=== PATIENT | female | born 1950 | race Caucasian/White ===

== ENCOUNTER 2022-11-08 08:00 | Outpatient (NON) | payer MEDICARE, SELFPAY | END 2022-11-08 08:01 | disposition home or self-care (01) | LOC: ANHLAB 11-10 11:22 | PROVIDERS: PCP Physician Assistant Medical; Visit Provider Nurse Practitioner | DX: D18.01 Hemangioma of skin and subcutaneous tissue (principal) | CPT/HCPCS: 88305 ==

== ENCOUNTER 2024-10-25 09:06 | Outpatient (CLI) | payer MEDICARE, SELFPAY ==
--- NOTE | ~2024-10-25 | DEXA_ITS ---
Bone Density Report Name: SAAD FRANKLIN Age: 74 Sex: Female Ethnicity: White Date of : 1950 Indication: osteopenia; hysterectomy; Referring Provider: ANISH LANDRUM Study: Bone densitometry was performed. Exam Date: October 25, 2024 Accession number: [id number] Bone Density: Region BMD T-score Z-score Classification AP Spine(L1-L4) 0.872 -1.6 0.8 Osteopenia Femoral Neck (Left) 0.702 -1.3 0.8 Osteopenia Total Hip (Left) 0.892 -0.4 1.4 Normal Femoral Neck (Right) 0.660 -1.7 0.4 Osteopenia Total Hip (Right) 0.872 -0.6 1.2 Normal Total Hip Mean 0.882 -0.5 1.3 Normal World Health Organization criteria for BMD impression classify patients as: Normal (T-score at or above -1.0), Osteopenia (T-score between -1.0 and -2.5), or Osteoporosis (T-score at or below -2.5). 10-year Fracture Risk(1): Major Osteoporotic Fracture 12% Hip Fracture 2.7% Reported Risk Factors: [place] (), Neck BMD=0.660, BMI=25.4 (1) FRAX(R) Version 3.08. Fracture probability calculated for an untreated patient. Fracture probability may be lower if the patient has received treatment. Previous Exams: Region Exam Age BMD T-score BMD Change BMD Change Date g/cm2 vs Baseline vs Previous AP Spine (L1-L4) 10/25/2024 74 0.872 -1.6 -0.031 (-3.5%) -0.031 (-3.5%) 10/17/2015 65 0.904 -1.3 Total Hip(Left) 10/25/2024 74 0.892 -0.4 -0.074 (-7.6%) -0.074 (-7.6%) 10/17/2015 65 0.966 0.2 Total Hip(Right) 10/25/2024 74 0.872 -0.6 -0.069 (-7.3%) -0.069 (-7.3%) 10/17/2015 65 0.941 0.0 *Denotes significance at 95% confidence level, LSC for AP Spine = 0.022 g/cm2, LSC for Total Hip = 0.027 g/cm2 # Denotes dissimilar scan types or analysis methods Clinical Information Provided by Patient: Has used the following medications: Vitamin D, Calcium Has the following medical conditions: Hysterectomy Patient maximum height was 67.5 Menopause Age: 33 No regular weight bearing exercise Does not regularly consume dairy products Drinks caffeinated beverages Onset of menses at age 12 Number of children 3 Impression: The patient has low bone mass, based on the Right Femoral Neck T-score. The patient has an estimated ten-year risk of hip fracture of 2.7% and an estimated ten-year risk of major fracture of 12%, based on the WHO FRAX algorithm. No significant bone loss was observed. Discussion: BONE DENSITY IS LOW AT ONE OR MORE SKELETAL SITES. This patient's lowest T-score is low at one or more skeletal sites. It meets the World Health Organization's (WHO) criteria for ?low bone mass? (T-score between -1.0 and -2.5). The patient's 10-year risk of fracture as calculated by FRAX is less than the threshold where pharmacological therapy is recommended by the National Osteoporosis Foundation (NOF). However, all treatment decisions require clinical judgment and consideration of individual patient factors, including patient preferences, comorbidities, previous drug use, risk factors not captured in the FRAX model (e.g., frailty, falls, vitamin D deficiency, increased bone turnover, interval significant decline in bone density) and possible under or overestimation of fracture risk by FRAX. The patient should follow a healthful lifestyle (good nutrition with adequate calcium and vitamin D, and appropriate weight-bearing exercise). Follow-Up: Consider repeating this study in 2 to 3 years to reassess this patient's status, or sooner if there is some new clinical indication. Reported by: FELIPA on 10/25/2024 9:54:00 AM. Reviewed, dictated and finalized at location [facility] LAST
--- OUTSIDE RECORDS SUMMARY | 2024-10-25 09:26 | XMS_ITS | Encounter Summary ---
Author Organization [facility] Address [facility] [place] [address] Care Team Providers Care Body Trimmer Name Role Phone Abram Nelson MD Unavailable [phone] Diamond Castillo Primary Care Provider [phone] Encounter Details Date Type Department Care Team (Late Contact Info) Description 06/15/2022 Abstract Paul [address] [address] Jermaine Lloyd MA Social History Tobacco Use Types Packs/Day Years Used Date Smoking Tobacco: Never Smokeless Tobacco: Never Alcohol Use Standard Drinks/Week Comments No 0 (1 standard drink = 0.6 oz pur e alcohol) Comments Unknown Sex and Gender Information Value Date Recorded Sex Assigned at Female 01/03/2020 10:31 AM CDT Legal Sex Female 11:18 PM CDT Gender Identity Female 01/03/2020 10:31 AM CDT Sexual Orientation Straight 01/03/2020 10 :31 AM CDT Occupation Industry Job Start Date Job End Date Teacher Not on file Not on file Not on file COVID-19 Exposure Response Date Recorded In the last 10 days, have yo u been in contact with someone who was confirmed or suspected to have Coronavirus/COVID-19? No / Unsure 06/11/2022 9:17 AM CDT documented as of this encounter Plan of Treatment Upcoming Encounters Date Type Department Care Team (Late Contact Info) Description 04/05/2025 9:00 AM CDT Office Visit [facility] [address] [place] [address] Tom Sanchez, KIM [address] [place] [address] documented as of this encounter Procedures Procedure Name Priority Date/Time Associated Diagnosis Comments CBC (OUTSIDE LAB) Routine 06/10/2022 COMPREHENSIVE METABOLIC PANEL Routine 06/10/2022 LIPID PANEL Routine 06/10/2022 THYROID STIM HORMONE TSH Routine 06/10/2022 documented in this encounter Results * LIPID PANEL (06/10/2022) CHOLESTEROL 151 HDL 45 TRIGLYCERIDES 297 NON HDL CHOLESTEROL 106 LDL (CALCULATED) 70 06/10/2022 us Default History Genericprovider LABORATORY Final Result * COMPREHENSIVE METABOLIC PANEL (06/10/2022) SODIUM S/P/B 140 POTASSIUM S/P/B 4.8 CO2 28 CHLORIDE S/P/B 104 GLUCOSE 145 mg/dL CALCIUM S/P/B 9.2 BUN 13 CREATININE S/P/B 0.72 0.5 - 1.0 EGFR NON-AFR. AMER. 89 <=90 ALKALINE PHOSPHATASE S/P/B 61 ALT 37 AST 18 BILIRUBIN TOTAL S/P/B 0.5 ALBUMIN S/P/B 4.3 3.5 - 5.0 TOTAL PROTEIN S/P/B 6.4 06/10/2022 us Default History Genericprovider LABORATORY Final Result * THYROID STIM HORMONE, TSH (06/10/2022) TSH 5.77 06/10/2022 us Default History Genericprovider LABORATORY Final Result * CBC (OUTSIDE LAB) (06/10/2022) WBC 5.2 HGB 13.3 HCT 41.1 PLT 272 06/10/2022 us Default History Genericprovider LAB-OUTSIDE/ABST RACTED Final Result documented in this encounter Visit Diagnoses Not on filedocumented in this encounter Care Teams Body Trimmer Relationship Specialty Start Date End Date Diamond Castillo PA [address] [place] [address] PCP - General PHYSICIAN ACADEMIC SUPPORT COORDINATOR 06/11/22 Abram Nelson MD [facility]. [facility] [address] [place] [address] [place] Chief Environmental Commitment Officer CARDIOVASCULAR DISEASE 03/14/18 documented as of this encounter
--- OUTSIDE RECORDS SUMMARY | 2024-10-25 09:26 | XMS_ITS | Encounter Summary ---
Author Organization [facility] Address [facility] [place] [address] Care Team Providers Care Electronics Processor Name Role Phone Leonel Brasher MD Primary Care Provider [phone] Abram Nelson MD Unavailable [phone] Diamond Castillo Primary Care Provider [phone] Encounter Details Date Type Department Care Team (Late Contact Info) Description 06/12/2021 Abstract [facility] [address] Jermaine Lloyd MA Social History Tobacco Use [...] file Not on file Not on file documented as of this encounter Plan of Treatment Upcoming Encounters Date Type Department Care Team (Late st Contact Info) Description 04/05/2025 9:00 AM CDT Office Visit [facility] [address] Tom Sanchez, KIM [id number] [place] [address] documented as of this encounter Procedures Procedure Name Priority Date/Time Associated Diagnosis Comments HEMOGLOBIN, GLYCOSYLATED Routine 09/07/2023 COMPREHENSIVE METABOLIC PANEL Routine 09/07/2023 LIPID PANEL Routine 09/07/2023 CBC, MANUAL DIFF Routine 09/07/2023 THYROXINE, FREE (FT4) Routine 09/07/2023 THYROID STIM HORMONE TSH Routine 09/07/2023 CBC (OUTSIDE LAB) Routine 03/31/2021 COMPREHENSIVE METABOLIC PANEL Routine 03/31/2021 LIPID PANEL Routine 03/31/2021 HEMOGLOBIN, GLYCOSYLATED Routine 03/31/2021 documented in this encounter Results * COMPREHENSIVE METABOLIC PANEL (09/07/2023) SODIUM S/P/B 139 GLUCOSE 142 mg/dL AST 18 BUN 10 CREATININE S/P/B 0.75 0.5 - 1.0 CALCIUM S/P/B 8.6 POTASSIUM S/P/B 4.3 CHLORIDE S/P/B 105 ALT 17 us Default History Genericprovider LABORATORY Final Result * LIPID PANEL (09/07/2023) CHOLESTEROL 168 TRIGLYCERIDES 179 HDL 50 NON HDL CHOLESTEROL 118 us Default History Genericprovider LABORATORY Final Result * CBC, MANUAL DIFF (09/07/2023) WBC 5.3 HGB 12.9 HCT 39.2 PLT 280 us Default History Genericprovider LABORATORY Final Result * THYROXINE, FREE (FT4) (09/07/2023) Pathologist [facility] FREE T4 1.0 Result [facility] Default History Genericprovider LABORATORY Final Result * HEMOGLOBIN, GLYCOSYLATED (09/07/2023) Pathologist [facility] HGB A1C 6.9 % Result [facility] Default History Genericprovider LABORATORY Final Result * THYROID STIM HORMONE TSH (09/07/2023) Pathologist [facility] TSH 5.05 Result [facility] Default History Genericprovider LABORATORY Final Result * CBC (OUTSIDE LAB) (03/31/2021) [facility] WBC 7.9 HGB 13.7 HCT 41.7 PLT 330 03/31/2021 us Doc [facility] Abstract LAB-OUTSIDE/ABSTRACTED Final Result * HEMOGLOBIN, GLYCOSYLATED (03/31/2021) Pathologist [facility] HGB A1C 6.4 % 03/31/2021 us Doc [facility] Abstract LABORATORY Final Result * COMPREHENSIVE METABOLIC PANEL (03/31/2021) Pathologist [facility] SODIUM S/P/B 139 POTASSIUM S/P/B 4.1 CO2 24 CHLORIDE S/P/B 103 GLUCOSE 147 mg/dL CALCIUM S/P/B 9.0 BUN 14 CREATININE S/P/B 0.81 0.5 - 1.0 EGFR AFR. AMER. 85 <=90 EGFR NON-AFR. AMER. 73 <=90 ALKALINE PHOSPHATASE S/P/B 55 ALT 15 AST 17 BILIRUBIN TOTAL S/P/B 0.4 ALBUMIN S/P/B 4.4 3.5 - 5.0 TOTAL PROTEIN S/P/B 6.8 GLOBULIN 2.4 03/31/2021 us Doc [facility] Abstract LABORATORY Final Result * LIPID PANEL (03/31/2021) CHOLESTEROL 179 HDL 41 TRIGLYCERIDES 463 NON HDL CHOLESTEROL 138 03/31/2021 us Doc [facility] Abstract LABORATORY Final Result documented in this encounter Visit Diagnoses Not on filedocumented in this encounter Care Teams Electronics Processor Relationship Specialty Start Date End Date Leonel Brasher MD PCP - General INTERNAL MEDICINE 03/08/17 06/10/22 Diamond Castillo PA [address] [place] [address] PCP - General PHYSICIAN TRACK LABORER 06/11/22 Abram Nelson MD [facility] [address] [place] [address] [place]ow Review Specialist CARDIOVASCULAR DISEASE 03/14/18 documented as of this encounter
--- OUTSIDE RECORDS SUMMARY | 2024-10-25 09:26 | XMS_ITS | Encounter Summary ---
Author Organization [facility] Address [address] [place] [address] Care Team Providers Care Shift Stacker Name Role Phone Leonel Brasher MD Primary Care Provider [phone] Encounter Details Date Type Department Care Team (Latest Contact Info) Description 10/21/2024 Results Follow-Up [facility] E[facility], NOSE AND THROAT [facility] [address] [facility] [address] [place] [address] Leonardo Espinal MD [address] [facility]. [facility] [address] [place] [address] THYROID AUTOANTIBODIES PROFILE Social History Tobacco Use Types Packs/Day Years Used Date Smoking Tobacco: Never Smokeless Tobacco: Never Alcohol Use Standard Drinks/Week Comments Never 0 (1 standard drink = 0.6 oz pur e alcohol) Comments Unknown Sex and Gender Information Value Date Recorded Sex Assigned at Not on file Legal Sex Female 5:39 AM UNIT SUPPORT REPRESENTATIVE Gender Identity Not on file Sexual Orientation Not on file Occupation Industry Job Start Date Job End Date Not on file Not on file Not on file Not on file documented as of this encounter Plan of Treatment Upcoming Encounters Date Type Department Care Team (Late st Contact Info) Description 09/19/2025 12:45 PM UNIT SUPPORT REPRESENTATIVE Office Visit [facility] [address] [facility] [address] [place] [address] Leonardo Espinal MD [address] [facility] [address] [facility] [address] [place] [address] documented as of this encounter Visit Diagnoses Not on filedocumented in this encounter Care Teams Shift Stacker Relationship Specialty Start Date End Date Leonel Brasher MD [address] [place] [phone] PCP - General 11/08/08 documented as of this encounter
--- OUTSIDE RECORDS SUMMARY | 2024-10-25 09:26 | XMS_ITS | Encounter Summary ---
Author Organization [facility] Address [facility] [place] [address] Care Team Providers Care Orthopedic Designer Name Role Phone Leonel Brasher MD Primary Care Provider Abram Nelson MD Unavailable [phone] Diamond Castillo Primary Care Provider [phone] Encounter Details Date Type Department Care Team (Late Contact Info) Description 04/27/2018 Abstract [facility] at [address] [address] Jermaine Lloyd MA Social History [...] AM CDT Office Visit [facility] [address] Tom Sanchez, LITHOGRAPHIC PROOFER APPRENTICE Three [address] [id number] documented as of this encounter Procedures Procedure Name Priority Date/Time Associated Diagnosis Comments CBC (OUTSIDE LAB) Routine 02/01/2020 COMPREHENSIVE METABOLIC PANEL Routine 02/01/2020 LIPID PANEL Routine 02/01/2020 HEMOGLOBIN, GLYCOSYLATED Routine 02/01/2020 THYROID STIM HORMONE TSH Routine 02/01/2020 VITAMIN D, 25 OH Routine 02/01/2020 MAGNESIUM Routine 02/01/2020 CBC (OUTSIDE LAB) Routine 09/27/2017 COMPREHENSIVE METABOLIC PANEL Routine 09/27/2017 LIPID PANEL Routine 09/27/2017 HEMOGLOBIN, GLYCOSYLATED Routine 09/27/2017 THYROID STIM HORMONE TSH Routine 09/27/2017 VITAMIN D, 25 OH Routine 09/27/2017 MAGNESIUM Routine 09/27/2017 documented in this encounter Results * VITAMIN D, 25 OH (02/01/2020) VITAMIN D 25 HYDROXY S/P/B 30 02/01/2020 us Doc [facility] Abstract LABORATORY Final Result * CBC (OUTSIDE LAB) (02/01/2020) WBC 6.1 HGB 13.0 HCT 40.7 PLT 315 02/01/2020 us Doc [facility] Abstract LAB-OUTSIDE/ABSTRACTED Final Result * THYROID STIM HORMONE, TSH (02/01/2020) Pathologist [facility] TSH 2.21 0.40 - 4.50 02/01/2020 us Doc [facility] Abstract LABORATORY Final Result * MAGNESIUM (02/01/2020) Pathologist [facility] MAGNESIUM 2.0 1.5 - 2.5 02/01/2020 us Doc [facility] Abstract LABORATORY Final Result * HEMOGLOBIN, GLYCOSYLATED (02/01/2020) Pathologist [facility] HGB A1C 7.7 % 02/01/2020 us Doc [facility] Abstract LABORATORY Final Result * (ABNORMAL) COMPREHENSIVE METABOLIC PANEL (02/01/2020) Pathologist [facility] SODIUM S/P/B 140 POTASSIUM S/P/B 4.4 CO2 28 CHLORIDE S/P/B 105 GLUCOSE 168 mg/dL CALCIUM S/P/B 9.3 BUN 11 CREATININE S/P/B 0.77 0.5 - 1.0 EGFR AFR. AMER. 91(A) <=90 EGFR NON-AFR. AMER. 78 <=90 ALKALINE PHOSPHATASE S/P/B 51 ALT 19 AST 17 BILIRUBIN TOTAL S/P/B 0.5 ALBUMIN S/P/B 4.4 3.5 - 5.0 TOTAL PROTEIN S/P/B 6.2 GLOBULIN 1.8 02/01/2020 us Doc [facility] Abstract LABORATORY Final Result * LIPID PANEL (02/01/2020) Pathologist [facility] CHOLESTEROL 156 HDL 50 TRIGLYCERIDES 167 NON HDL CHOLESTEROL 106 LDL (CALCULATED) 79 02/01/2020 us Doc [facility] Abstract LABORATORY Final Result * VITAMIN D, 25 OH (09/27/2017) VITAMIN D 25 HYDROXY S/P/B 32 09/27/2017 Doc [facility] Abstract LABORATORY Final Result * CBC (OUTSIDE LAB) (09/27/2017) Pathologist [facility] WBC 5.3 HGB 12.9 HCT 39.4 PLT 316 09/27/2017 Doc [facility] Abstract LAB-OUTSIDE/ABSTRACTED Final Result * THYROID STIM HORMONE, TSH (09/27/2017) Pathologist [facility] TSH 2.76 09/27/2017 [facility] LABORATORY Final Result * MAGNESIUM (09/27/2017) Pathologist [facility] MAGNESIUM 1.9 09/27/2017 [facility] LABORATORY Final Result * HEMOGLOBIN, GLYCOSYLATED (09/27/2017) Pathologist [facility] HGB A1C 8.7 09/27/2017 [facility] LABORATORY Edited Resul t - Final * (ABNORMAL) COMPREHENSIVE METABOLIC PANEL (09/27/2017) Pathologist [facility] SODIUM S/P/B 138 POTASSIUM S/P/B 4.3 CO2 29 CHLORIDE S/P/B 102 GLUCOSE 212 mg/dL CALCIUM S/P/B 9.3 BUN 14 CREATININE S/P/B 0.78 0.5 - 1.0 EGFR AFR. AMER. 91(A) <=90 EGFR NON-AFR. AMER. 79 <=90 ALKALINE PHOSPHATASE S/P/B 51 ALT 19 AST 17 BILIRUBIN TOTAL S/P/B 0.7 ALBUMIN S/P/B 4.1 3.5 - 5.0 TOTAL PROTEIN S/P/B 6.5 09/27/2017 us Doc [facility] Abstract LABORATORY Final Result * LIPID PANEL (09/27/2017) CHOLESTEROL 132 HDL 46 TRIGLYCERIDES 162 NON HDL CHOLESTEROL 86 LDL (CALCULATED) 62 09/27/2017 us Doc [facility] Abstract LABORATORY Final Result documented in this encounter Visit Diagnoses Not on filedocumented in this encounter Care Teams Orthopedic Designer Relationship Specialty Start Date End Date Leonel Brasher MD PCP - General INTERNAL MEDICINE 03/08/17 06/10/22 Diamond Castillo PA [address] [place] [address] PCP - General PHYSICIAN GALLERY INTERN 06/11/22 Abram Nelson MD [facility] [address] [place] [address] [place] Stock Checker CARDIOVASCULAR DISEASE 03/14/18 documented as of this encounter
--- OUTSIDE RECORDS SUMMARY | 2024-10-25 09:26 | XMS_ITS | Referral Summary ---
Author Organization [facility] Address [address] [place] [address] Care Team Providers Care Computer Graphic Artist Name Role Phone Referral, Self Unavailable Unavailable Diamond Castillo Primary Care Provider [phone] Allergies Active Allergy Reactions Criticality Noted Date Comments Penicillins Hives,Rash,Unknown Medium 11/24/2009 Rash Prednisone Mental status changes,Unknown Medium 11/24/2009 Other reaction(s): Confusion, Memory Loss 40 yrs ago Confusion Medications [place] Thyroid 15 mg tablet 09/18/2020 Active simvastatin (ZOCOR) 20 mg tablet 09/18/2020 Active Ozempic 1 mg/dose (2 mg/1.5 mL) pen injector 09/18/2020 Active omeprazole (PriLOSEC) 20 mg capsule 09/18/2020 Active ezetimibe (ZETIA) 10 mg tablet 09/18/2020 Active metFORMIN XR (GLUCOPHAGE XR) 500 mg 24 hr tablet 09/18/[address] (VOLTAREN) 75 mg EC tablet 09/18/2020 Active irbesartan (AVAPRO) 150 mg tablet 09/25/2020 Active Active Problems Problem Noted Date Diagnosed Date Diabetes 11/10/2021 DJD (degenerative joint disease) 11/10/2021 Other fatigue 04/21/2018 Heart palpitations 02/03/2016 Hyperlipidemia 02/03/2016 Hypertension 02/03/2016 Immunizations Immunization Administration Dates Next Due Pneumococcal Conjugate PCV 13 08/05/2016 Pneumococcal Polysaccharide PPV23 09/21/2017 Social History Tobacco Use Types Packs/Day Years Used Date Smoking Tobacco: Never Smokeless Tobacco: Never Tobacco Cessation:Counseling Given: No Personal Safety Answer Date Recorded Getting School Help Needed Not on file 10/21 Comments Unknown Sex and Gender Information Value Date Recorded Sex Assigned at Not on file Legal Sex Female 7:45 PM MANAGER OF DEVELOPMENT Gender Identity Not on file Sexual Orientation Not on file Last Filed Vital Signs Vital Sign Reading Time Taken Comments Blood Pressure 112/70 08/21/2013 9:15 PM MANAGER OF DEVELOPMENT Pulse 88 08/21/2013 9:15 PM MANAGER OF DEVELOPMENT Temperature 36.5 C (97.7 F) 08/21/2013 9:15 PM MANAGER OF DEVELOPMENT Respiratory Rate - - Oxygen Saturation 93% 08/21/2013 9:15 PM MANAGER OF DEVELOPMENT Inhaled Oxygen Concentration - - Weight 71.7 kg (158 lb) 10/22/2020 9:34 AM CDT Height 170.2 cm (5' 7 ) 10/22/2020 9:34 AM CDT Body Mass Index 24.75 10/22/2020 9:34 AM CDT Plan of Treatment Not on file Procedures Procedure Name Priority Date/Time Associated Diagnosis Comments HEMOGLOBIN A1C Routine 08/22/2013 4:58 AM MANAGER OF DEVELOPMENT from Last 3 Months or Most Recently Relevant to Health Maintenance Results * (ABNORMAL) Hemoglobin A1c (08/22/2013 4:58 AM MANAGER OF DEVELOPMENT) Hemoglobin A1c % 8.5(H) 4.8 - 5.9 % 08/22/2013 7:36 AM MANAGER OF DEVELOPMENT [facility] HISTORICAL RESULTS Comment: As of 2010 Method: SAMSON Adilene 6000 using turbidometric inhibition immunoassay procedure. Results obtained are comparable to results obtained using previous methodology (HPLC). [place] Diabetes Association recommends that the goal of therapy should be an A1C hemoglobin of <7%. Reevaluate the treatment regimen in patients with an A1C >8%. 08/22/2013 4:58 AM MANAGER OF DEVELOPMENT 08/22/2013 5:45 AM MANAGER OF DEVELOPMENT us Patrick Campbell MD LAB BLOOD ORDERABLES F inal Result [facility] HISTORICAL RESULTS from Last 3 Months or Most Recently Relevant to Health Maintenance Insurance [facility] MEDICARE MEDICARE SOLUTIONS [facility] MEDIC[facility] Address: [address] [address] [place] [address] Care Teams Computer Graphic Artist Relationship Specialty Start Date End Date Diamond Castillo PA [address] [place] [address] PCP - General Physician Ethanol Operator 09/10/22 Referral, Self 09/22/21
--- OUTSIDE RECORDS SUMMARY | 2024-10-25 09:26 | XMS_ITS | Clinical Summary ---
Author Organization [facility] Address [address] [place] [address] Care Team Providers Care Hospital Ward Clerk Name Role Phone Referral, Self Unavailable Unavailable Diamond Castillo Primary Care Provider [phone] Allergies Active Allergy Reactions Criticality Noted Date Comments Penicillins Hives,Rash,Unknown Medium 11/24/2009 Rash Prednisone Mental status changes,Unknown Medium 11/24/2009 Other reaction(s): Confusion, Memory Loss 40 yrs ago Confusion Medications [place] Thyroid 15 mg tablet 09/18/2020 Active simvastatin [...] PCV 13 08/05/2016 Pneumococcal Polysaccharide PPV23 09/21/2017 Surgical History Surgery Date Site/Laterality Comments HYSTERECTOMY KNEE SURGERY Medical History Medical History Date Comments Anemia Arthritis Asthma Diabetes mellitus (HCC) Gastric reflux Heart valve disease Hypercholesteremia Migraines Pneumonia Allergic rhinitis Thyroid disease Urinary tract infection Family History Medical History Relation Name Comments Arthritis Father Heart disease Father Hypertension Father Lung disease Father Arthritis Mother Diabetes Mother Heart disease Mother Hypertension Mother Relation Name Status Comments Father Mother Social History Tobacco Use Types Packs/Day Years Used Date Smoking Tobacco: Never Smokeless Tobacco: Never Tobacco Cessation:Counseling Given: No Personal Safety Answer Date Recorded Getting School Help Needed Not on file 10/21 Comments Unknown Sex and Gender Information Value Date Recorded Sex Assigned at Not on file Legal Sex Female 7:45 PM BONE PROCESS OPERATOR Gender Identity Not on file Sexual Orientation Not on file Obstetrics History Last Filed Vital Signs Vital Sign Reading Time Taken Comments Blood Pressure 112/70 08/21/2013 9:15 PM BONE PROCESS OPERATOR Pulse 88 08/21/2013 9:15 PM BONE PROCESS OPERATOR Temperature 36.5 C (97.7 F) 08/21/2013 9:15 PM BONE PROCESS OPERATOR Respiratory Rate - - Oxygen Saturation 93% 08/21/2013 9:15 PM BONE PROCESS OPERATOR Inhaled Oxygen Concentration - - Weight 71.7 kg (158 lb) 10/22/2020 9:34 AM CDT Height 170.2 cm (5' 7 ) 10/22/2020 9:34 AM CDT Body Mass Index 24.75 10/22/2020 9:34 AM CDT Plan of Treatment Health Maintenance Due Date Last Done Comments Albumin Creatinine Ratio, Urine 1949 Breast Cancer Screening-Mammogram 1949 Colon Cancer Screening-Colonoscopy 1949 Depression Screening 1949 Fall Risk Assessment 1950 Hepatitis C Screening 1949 Osteoporosis Screening-Bone Density Scan 1949 eGFR 1949 Dilated Eye Exam 1949 Foot Exam 1949 Lipid Panel 1949 DTaP/Tdap/Td Vaccine (1 - Tdap) 1960 Hepatitis B Screening 10/15/1967 Zoster Vaccine (1 of 2) 10/15/1999 Hemoglobin A1C 02/19/2014 08/22/2013 Well Visit 65+ 2014 Influenza Vaccine (#1) 2024 Pneumococcal vaccine 65+ Completed 09/21/2017, 07/09 Procedures Procedure Name Priority Date/Time Associated Diagnosis Comments HEMOGLOBIN A1C Routine 08/22/2013 4:58 AM BONE PROCESS OPERATOR from Last 3 Months or Most Recently Relevant to Health Maintenance Results * (ABNORMAL) Hemoglobin A1c (08/22/2013 4:58 AM BONE PROCESS OPERATOR) Hemoglobin A1c % 8.5(H) 4.8 - 5.9 % 08/22/2013 7:36 AM BONE PROCESS OPERATOR [facility] HISTORICAL RESULTS Comment: As of 2010 Method: SAMSON Adilene 6000 using turbidometric inhibition immunoassay procedure. Results obtained are comparable to results obtained using previous methodology (HPLC). Citizen Of [place] Diabetes Association recommends that the goal of therapy should be an A1C hemoglobin of <7%. Reevaluate the treatment regimen in patients with an A1C >8%. 08/22/2013 4:58 AM BONE PROCESS OPERATOR 08/22/2013 5:45 AM BONE PROCESS OPERATOR Patrick Campbell MD LAB BLOOD ORDERABLES F inal Result [facility] HISTORICAL RESULTS from Last 3 Months or Most Recently Relevant to Health Maintenance Insurance [employer] [facility] MEDIC[facility] Address: [facility] [id number] [place] [address] MEDICARE SOLUTIONS Care Teams Hospital Ward Clerk Relationship Specialty Start Date End Date Diamond Castillo PA [address] [place] [address] PCP - General Physician Assurance Auditor 09/10/22 Referral, Self 09/22/21
--- OUTSIDE RECORDS SUMMARY | 2024-10-25 09:26 | XMS_ITS | Clinical Summary ---
Author Organization [email or web address] Address [address] [place] [address] Care Team Providers Care Commercial Solar Sales Consultant Name Role Phone Chanell Snell Primary Care Provider Source Comments [email or web address],non-owned Affiliates and Associated Physician Practices is amultiple site organization consisting of ambulatory clinics and hospital sitesin [place], [place], [place] and [place]. This disclosure is being madepursuant to the Care Everywhere program and may not contain all information available regarding this patient. Last updated 18.[email or web address] Social History Tobacco Use Types Packs/Day Years Used Date Smoking Tobacco: Never Assessed Sex and Gender Information Value Date Recorded Sex Assigned at Not on file Gender Identity Not on file Sexual Orientation Not on file Plan of Treatment Health Maintenance Due Date Last Done Comments BONE DENSITY TESTING 1950 COLOGUARD (AGES 45-75) - COL ON CA SCREENING 1950 COLON MONITORING 1950 COLONOSCOPY - COLON CA SCREENING 1949 CT COLONOGRAPHY - COLON CA SCREENING 1950 Colorectal Cancer Screening 1950 FIT - COLON CA SCREENING 1949 FLEX SIG - COLON CA SCREENING 1950 LIPID TESTING 1950 MAMMOGRAM 1950 HEPATITIS C SCREENING 10/10/1967 DTAP/TDAP/TD VACCINES (1 - Tdap) 1968 PNEUMOCOCCAL VACCINE 50+ (1 of 1 - PCV) 10/15/1999 ZOSTER VACCINE (1 of 2) 10/15/1999 COVID-19 VACCINE ( - 2023-2 5 season) 2024 INFLUENZA VACCINE (#1) 2024 DEPRESSION SCREENING 08/08/2024 Respiratory Syncytial Virus (RSV) Vaccine Pt: or over 60 yrs (1 - 1-dose 75+ series) 2024 HEPATITIS B VACCINE Aged Out No longe r eligible based on patient's age to complete this topic HIB VACCINE Aged Out No longer eligi ble based on patient's age to complete this topic HPV VACCINE Aged Out No longer eligi ble based on patient's age to complete this topic MENINGOCOCCAL (Group B) VACC INE SHARED DECISION-MAKING Aged Out No longer eligibl e based on patient's age to complete this topic MENINGOCOCCAL GROUPS A/C/Y/W VACCINE Aged Out No longer eligible b ased on patient's age to complete this topic Care Teams Commercial Solar Sales Consultant Relationship Specialty Start Date End Date Chanell Snell PA [address] [place] [address] PCP - General 11/30/22
--- OUTSIDE RECORDS SUMMARY | 2024-10-25 09:26 | XMS_ITS | Clinical Summary ---
Author Organization [facility] Address [facility] [place] [address] Care Team Providers Care Biology Teacher Name Role Phone Abram Nelson MD Unavailable [phone] Thomas Castillo Primary Care Provider Allergies Active Allergy Reactions Criticality Noted Date Comments Penicillins Rash Low 11/24/2009 Prednisone Memory Loss Medium 11/24/2009 40 yrs ago Steroids Memory Loss Medium 02/03/2016 40 yrs ago Medications DAILY MULTIPLE VITAMINS Tab Take 1 tablet by mouth daily. 05/15/2013 Active diclofenac sodium 75 MG tablet Take 1 tablet (75 mg total) by mouth 2 (two) times daily as needed. 05/14/2013 Active omeprazole 20 MG capsule Take 1 capsule (20 mg total) by mouth daily. 05/14/2013 Active ARMOUR THYROID 15 MG Tab Take 1 tablet (15 mg total) by mouth daily. 01/27/2016 Active ARMOUR THYROID 60 MG tablet Take 1 tablet (60 mg total) by mouth daily. 01/27/2016 Active B Complex-Folic Acid (SUPER B COMPLEX MAXI) Tab Take 1 tablet by mouth daily. 02/04/2016 Active Multiple Vitamins-Minera ls (VISION FORMULA/LUTEIN) Tab Take 1 tablet by mouth daily. 02/04/2016 Active Vitamin E 400 UNITS Tab Take 1 tablet by mouth daily. 02/04/2016 Active calcium carb-cholecalci ferol (CALCIUM 600+D) 600-800 MG-UNIT per tablet Take 1 tablet by mouth daily. 02/04/2016 Active Cyanocobalamin (VITAMIN B-12) [address] 1 tablet under the tongue daily. NO DOSE GIVEN 04-21-18 04/21/2018 Active montelukast 10 MG tablet Take 1 tablet (10 mg total) by mouth every morning. 04/21/2018 Active Cholecalciferol (VITAMIN D) 1000 UNIT tablet Take 1 tablet (1,000 Units total) by mouth daily. NO DOSE GIVEN 04-21-18. 04/21/2018 Active irbesartan 75 MG tablet Take 0.5 tablets (37.5 mg total) by mouth daily. 04/27/2019 Active FARXIGA 5 MG Tab 02/13/2021 Active OZEMPIC, 1 MG/DOSE, 4 MG/3ML Solution Pen-injector 02/19/2021 Active vitamin A 3 MG (41694 UT) capsule Take by mouth daily. Active metFORMIN ER (GLUCOPHAGE-XR) 500 MG 24 hr tablet Take 1 tablet (500 mg total) by mouth daily with breakfast. 03/24/2024 Active rosuvastatin (CRESTOR) 5 MG tablet Take 1 tablet (5 mg total) by mouth nightly at bedtime. at bedtime 90 tablet 1 07/20/2024 Active Active Problems Problem Noted Date Diagnosed Date Dizziness 01/01/2022 Other fatigue 04/21/2018 Heart palpitations 02/03/2016 Hypertension 02/03/2016 Hyperlipidemia 02/03/2016 Encounters Date Type Department Care Team Description 09/17/2024 10:38 AM TEA TASTER - 09/17/2024 11:59 PM [facility] Hospital [place] [address] [place] [address] Kaia Landrum FNP Discharge Disposition: Home or Self Care (Routine Discharge) 09/17/2024 Travel 08/15/2024 8:48 AM TEA TASTER - 08/15/2024 11:59 PM [facility] Hospital Encounter [facility] Ultrasound [address] [place] [address] Thomas Castillo PA Discharge Disposition: Home or Self Care (Routine Discharge) 08/15/2024 Travel from Last 3 Months Family History Medical History Relation Comments Breast Cancer Daughter Diabetes Mother Family history positive for heart disease Other Breast Cancer Paternal Aunt 60's Breast Cancer Paternal Grandmother Breast Cancer Sister 1 60's Diabetes Sister 1 Diabetes Sister 2 Relation Status Comments Daughter Father Maternal Aunt Mother Other Paternal Aunt Alive Paternal Grandmother Sister 1 Alive Sister 2 Alive Social History Tobacco Use Types Packs/Day Years Used Date Smoking Tobacco: Never Smokeless Tobacco: Never Tobacco Cessation:Counseling Given: Not Answered Alcohol Use Standard Drinks/Week Comments No 0 [...] file Not on file Not on file Last Filed Vital Signs Vital Sign Reading Time Taken Comments Blood Pressure 138/60 03/30/2024 8:22 AM CDT Pulse 72 03/30/2024 8:22 AM CDT Temperature - - Respiratory Rate - - Oxygen Saturation 96% 08/26/2023 9:41 AM TEA TASTER Inhaled Oxygen Concentration - - Weight 73.5 kg (162 lb) 03/30/2024 8:22 AM CDT Height 170.2 cm (5' 7 ) 03/30/2024 8:22 AM CDT Body Mass Index 25.37 03/30/2024 8:22 AM CDT Plan of Treatment Upcoming Encounters Date Type Department Care Team (Late st Contact Info) Description 04/05/2025 9:00 AM CDT Office Visit [facility] [address] [place] [address] Tom Sanchez, KIM [address] [address] Health Maintenance Due Date Last Done Comments Colorectal Cancer Screening Colonoscopy (10 Years) 1950 Hepatitis C 10/15/1967 DTaP, Tdap and Td Vaccines (1 - Tdap) 1968 Zoster Vaccines (1 of 2) 10/15/1999 Annual Medicare Wellness Visit 2014 Dexa Scan (General) 2014 COVID-19 Vaccine (2023- season) 2024 Influenza Adult (#1) 2024 RSV Immunization or 60+ Years (1 - 1-dose 75+ series) 2024 Mammogram Screening 03/13/2026 03/13/2024, 11/17/2022, 10/28/2021, Additional history exists Pneumococcal Vaccine: 65+ Years Completed 09/21/2017, 08/05/2016 Meningococcal B Vaccine Aged Out No l onger eligible based on patient's age to complete this topic Meningococcal Vaccine Aged Out No morro michele eligible based on patient's age to complete this topic RSV Immunizations Under 20 Months Aged Out No longer eligible based on patient's age to complete this topic Procedures Procedure Name Priority Date/Time Associated Diagnosis Comments CT ABD+PEL WO CON STAT 09/17/2024 11: 08 AM TEA TASTER Unspecified jaundice US THYROID Routine 08/15/2024 9:17 AM TEA TASTER Nontoxic single thyroid nodule MG SCREENING W BARBARA ALEX DIGI Routine 03/13/2024 3:25 PM CDT Screening mammogram, encounter for from Last 3 Months or Most Recently Relevant to Health Maintenance Results * CT ABD+PEL WO CON (09/17/2024 11:08 AM TEA TASTER) Anatomical Region Laterality Modality Abdomen Computed Tomogra phy 09/17/2024 11:2 8 AM TEA TASTER Impressions 09/17/2024 12:01 PM TEA TASTER IMPRESSION: 1. Mild fatty liver without focal mass on this noncontrast study. No biliary ductal dilatation. No gross pancreatic mass 2. Gallbladder calculi without inflammation. No renal calculi or hydronephrosis.. 3. Stable enlarged periaortic lymphadenopathy. No new lymphadenopathy. Normal size spleen without mass. Ordered By: KAIA LANDRUM Interpreted By: Matt Coleman, 09/17/2024 11:28 AM Narrative 09/17/2024 12:01 PM TEA TASTER [facility] [address] [place] [address] EXAMINATION: CT Abdomen and Pelvis without contrast EXAM DATE/TIME: 09/17/2024 10:40 AM REASON FOR EXAM: unspecified jaundice Normal liver enzymes. 03/24/2023 COMPARISON: 03/24/2023 TECHNIQUE: Axial imaging of the abdomen and pelvis was obtained without intravenous contrast. A dose lowering technique was used for this procedure, which may include, but is not limited to, dose reduction technique, automated exposure control, iterative reconstruction, ALARA (As Low As Reasonably Achievable), or Image Gently techniques. FINDINGS: Abdomen: Adrenal glands are unremarkable. Kidneys demonstrate no suspicious lesion or hydronephrosis. Stomach and duodenum are unremarkable. Spleen is unremarkable. Few gallbladder calculi without dilatation or inflammation. No calculi within the cystic duct or common bile duct. No intrahepatic biliary ductal dilatation. Pancreas grossly unremarkable. Hepatic parenchyma are within normal limits with no evidence of intrahepatic biliary dilatation or mass within the limitations of a noncontrast study. No mesenteric lymphadenopathy or evidence of small bowel obstruction. No free fluid or free air. Relatively stable enlarged pathologic sized lymph nodes at the level of the superior right periaortic region. Largest short Alna dimension of 2.4 cm on image 72 of series 2.. No new lymphadenopathy. No evidence of an abdominal aortic aneurysm. Scattered fecal material and gas throughout the colon without evidence of mass or dilatation. Multiple diverticuli within the descending and sigmoid colon without diverticulitis. Stable possible appendectomy. No adjacent inflammation. Pelvis: Urinary bladder and rectum are unremarkable. Hysterectomy. No adnexal lesions. On bone windows, no evidence of suspicious skeletal lesion or acute compression fracture deformity. Stable bone islands in the pelvis. Stable total loss of disc space height at L5-S1 with mild spinal stenosis. Moderate spinal stenosis at L4- 5. Limited evaluation of the lower thorax demonstrates no acute abnormality. Procedure Note Keith Coleman MD - 09/17/2024 [facility] [address] [place] [id number] EXAMINATION: CT Abdomen and Pelvis without contrast EXAM DATE/TIME: 09/17/2024 10:40 AM REASON FOR EXAM: unspecified jaundice Normal liver enzymes. 03/24/2023 COMPARISON: 03/24/2023 TECHNIQUE: Axial imaging of the abdomen and pelvis was obtained withoutintravenous contrast. A dose lowering technique was used for this procedure, which may include,but is not limited to, dose reduction technique, automated exposurecontrol, iterative reconstruction, ALARA (As Low As ReasonablyAchievable), or Image Gently techniques. FINDINGS: Abdomen: Adrenal glands are unremarkable. Kidneys demonstrate nosuspicious lesion or hydronephrosis. Stomach and duodenum are unremarkable. Spleen is unremarkable. Few gallbladder calculi without dilatation or inflammation. No calculiwithin the cystic duct or common bile duct. No intrahepatic biliary ductaldilatation. Pancreas grossly unremarkable. Hepatic parenchyma are within normal limits with no evidence ofintrahepatic biliary dilatation or mass within the limitations of anoncontrast study. No mesenteric lymphadenopathy or evidence of small bowel obstruction. Nofree fluid or free air. Relatively stable enlarged pathologic sized lymph nodes at the level ofthe superior right periaortic region. Largest short Alna dimension of 2.4cm on image 72 of series 2.. No new lymphadenopathy. No evidence of an abdominal aortic aneurysm. Scattered fecal material and gas throughout the colon without evidence ofmass or dilatation. Multiple diverticuli within the descending and sigmoidcolon without diverticulitis. Stable possible appendectomy. No adjacent inflammation. Pelvis: Urinary bladder and rectum are unremarkable. Hysterectomy. Noadnexal lesions. On bone windows, no evidence of suspicious skeletal lesion or acutecompression fracture deformity. Stable bone islands in the pelvis. Stabletotal loss of disc space height at L5-S1 with mild spinal stenosis.Moderate spinal stenosis at L4-5. Limited evaluation of the lower thorax demonstrates no acuteabnormality. IMPRESSION: 1. Mild fatty liver without focal mass on this noncontrast study. Nobiliary ductal dilatation. No gross pancreatic mass 2. Gallbladder calculi without inflammation. No renal calculi orhydronephrosis.. 3. Stable enlarged periaortic lymphadenopathy. No new lymphadenopathy.Normal size spleen without mass. Ordered By: KAIA LANDRUM Interpreted By: Matt Coleman, 09/17/2024 11:28 AM us Kaia Landrum OXYACETYLENE BURNER CT Final Resul t * US THYROID (08/15/2024 9:17 AM TEA TASTER) Anatomical Region Laterality Modality Neck Ultrasound 08/16/2024 10:4 4 AM TEA TASTER Impressions 08/16/2024 10:50 AM TEA TASTER IMPRESSION: 1.8 cm left thyroid nodule is present. This is stable as compared back to June 20, 2023. Per current TI-RADS criteria FNA recommended. Please see discussion above. Follow-up of the thyroid nodule is recommended. Linear. Ordered By: THOMAS CASTILLO Interpreted By: Martin Courtney MD, 08/16/2024 10:44 AM Narrative 08/16/2024 10:50 AM TEA TASTER [facility] [address] [facility] [place] [id number] Procedure(s): US THYROID Date of service: 08/15/2024 8:49 AM Provided clinical information: 73 years, Female, NONTOXIC SINGLE THYROID NODULE Procedure and materials: Grayscale and color Doppler images of the right left lobe of thyroid gland are obtained. Comparison studies: July 15, 2023. Findings: Right lobe of thyroid gland measures 2.7 x 1.1 x 1.1 cm. Left lobe of thyroid gland measures 3 x 1.3 x 1.3 cm. Thyroid isthmus measures 2.2 mm. A heterogeneous echotexture. In the right lobe of thyroid gland there is a small nodule is present. This nodule is hypoechoic. Previously measured 1 x 0.6 x 0.7 cm. No evidence of echogenic foci. Small cystic area is suggested. TI-RADS Category 4. Follow-up in one year. In the left lobe of thyroid gland there is a hypoechoic nodule measuring approximately 1.8 x 1 x 0.9 cm. This previously measured approximately 1.8 x 1.1 x 1.2 cm. No echogenic foci are present. This is previously measured on prior ultrasound of June 20, 2023. This is relatively stable. TI-RADS Category 4. Due to size greater than 1.5 cm FNA could be considered. However, in light of the one year stability follow-up in one year could be performed. Per current TI-RADS recommendations FNA is recommended. Procedure Note Martin Courtney MD - 08/16/2024 [facility] [address] [place] [address] Procedure(s): US THYROID Date of service: 08/15/2024 8:49 AM Provided clinical information: 73 years, Female, NONTOXIC SINGLE THYROIDNODULE Procedure and materials: Grayscale and color Doppler images of the rightleft lobe of thyroid gland are obtained. Comparison studies: July 15, 2023. Findings: Right lobe of thyroid gland measures 2.7 x 1.1 x 1.1 cm. Left lobe of thyroid gland measures 3 x 1.3 x 1.3 cm. Thyroid isthmus measures 2.2 mm. A heterogeneous echotexture. In the right lobe of thyroid gland there is a small nodule is present.This nodule is hypoechoic. Previously measured 1 x 0.6 x 0.7 cm. Noevidence of echogenic foci. Small cystic area is suggested. TI-RADSCategory 4. Follow-up in one year. In the left lobe of thyroid gland there is a hypoechoic nodule measuringapproximately 1.8 x 1 x 0.9 cm. This previously measured approximately 1.8x 1.1 x 1.2 cm. No echogenic foci are present. This is previously measuredon prior ultrasound of June 20, 2023. This is relatively stable.TI-RADS Category 4. Due to size greater than 1.5 cm FNA could beconsidered. However, in light of the one year stability follow-up in oneyear could be performed. Per current TI-RADS recommendations FNA isrecommended. IMPRESSION: 1.8 cm left thyroid nodule is present. This is stable as compared back toN2022. Per current TI-RADS criteria FNA recommended. Pleasesee discussion above. Follow-up of the thyroid nodule is recommended. Linear. Ordered By: THOMAS CASTILLO Interpreted By: Martin Courtney MD, 08/16/2024 10:44 AM us Thomas PURVIS ULTRASOUND Final Result * MG SCREENING W BARBARA ALEX DIGI (03/13/2024 3:25 PM CDT) Anatomical Region Laterality Modality Breast Bilateral Mammography 03/13/2024 4:57 PM CDT Impressions 03/13/2024 5:02 PM CDT ===== IMPRESSION: ===== 1. Stable mammographic appearance with no new findings to suggest malignancy in either breast. Assessment: ACR BI-RADS 2 - BENIGN FINDING(S) Recommendation: 1:Routine Screening Bilateral Comments: Ordered By: KAIA LANDRUM Interpreted By: Matt Coleman, 03/13/2024 4:57 PM Narrative 03/13/2024 5:02 PM CDT EXAMINATION: Digital bilateral screening mammogram with 3-D tomosynthesis EXAM DATE/TIME: 03/13/2024 3:09 PM REASON FOR EXAM: Routine screening Benign bilateral breast biopsies. Breast carcinoma in daughter at age 40. Breast carcinoma in sister in her 60s. Paternal aunt with breast carcinoma. COMPARISON: 10/28/2021.. 11/17/2022. Technique: Digital screening mammography of both breasts was performed in addition to 3-D Tomosynthesis technique. This study was read with the assistance of a computer-aided detection system. Tissue density: There are scattered areas of fibroglandular density. Findings: Left breast biopsy clips. There is no new focal asymmetry, dominant mass lesion, area of skin thickening, or cluster of suspicious appearing calcifications in either breast to suggest malignancy. Kaia Landrum OXYACETYLENE BURNER MAMMO Final Resul t from Last 3 Months or Most Recently Relevant to Health Maintenance Insurance [employer] Care Teams Biology Teacher Relationship Specialty Start Date End Date Thomas Castillo PA [facility] [place] [address] PCP - General PHYSICIAN SKIP HOIST ENGINEER 06/11/22 Abram Nelson MD [facility] [address] [place] [address] [employer] Benefits Analyst CARDIOVASCULAR DISEASE 03/14/18
--- OUTSIDE RECORDS SUMMARY | 2024-10-25 09:26 | XMS_ITS | Clinical Summary ---
Author Organization [facility] Administrative Offices Address [address] [place] [phone] Care Team Providers Care Head Waiter/Waitress Banquet Name Role Phone Leonel Brasher MD Primary Care Provider [phone] Allergies Active Allergy Reactions Criticality Noted Date Comments Penicillins Unknown 11/24/2009 Prednisone Unknown 11/24/2009 Medications dapagliflozin (Farxiga) 5 mg Tablet 1 Active diclofenac sodium (VOLTAREN) 75 mg Tablet, Delayed Release (E.C.) 1 Active metFORMIN (GLUCOPHAGE XR) 500 mg Extended Release 24 hour tablet 1 Active [place] Thyroid 90 mg tablet 2 Active VITAMIN B COMPLEX ORAL Take by mouth. Ac tive Fish Oil-Rising Sun-3 Fatty Acids 360-1,200 mg Capsule Take 1 Capsule by mouth. Active aspirin (ECOTRIN EC) 81 mg Tablet, Delayed Release (E.C.) Take 81 mg by mouth daily. Active magnesium oxide 250 mg magnesium Tablet Take by mouth. Activ e Irbesartan (AVAPRO) 75 mg tablet Take 75 mg by mouth daily. 5 Active omeprazole (PriLOSEC) 40 mg Capsule, Delayed Release(E.C.) TAKE 1 CAPSULE TWICE DAILY (FREQUENCY INCREASED 09/09/2022) 4 Active rosuvastatin (CRESTOR) 5 mg tablet Take 5 mg by mouth. 4 Active Ozempic 1 mg/dose (4 mg/3 mL) Pen Injector INJECT 1MG SUBCUTANEOUSLY ONCE WEEKLY (EVERY 7 DAYS) 4 Active [place] Thyroid 60 mg tablet TAKE 1 TABLET EVERY OTHER DAY; ALTERNATE WITH 90MG 5 Active Active Problems Problem Noted Date Diagnosed Date Diabetes Hyperlipidemia DJD (degenerative joint disease) Thyroid disease Overview (11/24/2009): hypo Encounters Date Type Department Care Team Description 10/23/2024 Telephone [facility], [facility] [address] [facility] [address] [place] [address] Neyda Block, INSURANCE PROCESSING CLERK Results 10/21/2024 Results Follow-Up [facility] E[facility], NOSE [facility]RO[facility] [address] [facility] [address] [place] [address] Leonardo Espinal MD THYROID AUTOANTIBODIES PROFILE 10/13/2024 External Device Data [facility]CTION Provider, Abstract 10/13/2024 External Device Data [facility] [place] Provider, Abstract 10/10/2024 External Device Data [facility] [place] Provider, Abstract 09/26/2024 External Device Data [facility] Provider, Abstract 09/26/2024 External Device Data [place] Provider, Abstract 09/20/2024 12:30 PM PRIMARY HEALTH CARE NURSE Office Visit [facility], [facility]SE [facility] [address] [facility] [address] [place] [address] Leonardo Espinal MD Thyroid nodule (Primary Dx) from Last 3 Months Immunizations Immunization Administration Dates Next Due (PNEUMOVAX 23)(50 YRS UP) PN EUMOCOCCAL POLYSACCHARIDE (PPV23) 0.5 ML, IM 09/21/2017 (PREVNAR 13)(6 WKS UP) PNEUM OCOCCAL CONJUGATE (PCV13) 0.5 ML, IM 08/05/2016 Family History Medical History Relation Name Comments Asthma Father Cancer Father skin Heart Disease Father High Cholesterol Father Diabetes Mother Heart Disease Mother High Cholesterol Mother Thyroid Disease Mother Breast Cancer Paternal Aunt late 60's Breast Cancer Paternal Grandmother old Breast Cancer Sister 59 Colon Cancer Sister Relation Name Status Comments Father Mother Paternal Aunt Paternal Grandmother Sister Social History Tobacco Use Types Packs/Day Years Used Date Smoking Tobacco: Never Smokeless Tobacco: Never Tobacco Cessation:Counseling Given: Not Answered Alcohol Use Standard Drinks/Week Comments Never 0 (1 standard drink = 0.6 oz pur e alcohol) Comments Unknown Sex and Gender Information Value Date Recorded Sex Assigned at Not on file Legal Sex Female 5:39 AM PRIMARY HEALTH CARE NURSE Gender Identity Not on file Sexual Orientation Not on file Occupation Industry Job Start Date Job End Date Not on file Not on file Not on file Not on file Last Filed Vital Signs Vital Sign Reading Time Taken Comments Blood Pressure - - Pulse - - Temperature - - Respiratory Rate 18 08/19/2022 1:03 PM PRIMARY HEALTH CARE NURSE Oxygen Saturation - - Inhaled Oxygen Concentration - - Weight 70.3 kg (155 lb) 08/19/2022 1:03 PM PRIMARY HEALTH CARE NURSE Height 171.5 cm (5' 7.5 ) 08/19/2022 1:03 PM PRIMARY HEALTH CARE NURSE Body Mass Index 23.92 08/19/2022 1:03 PM PRIMARY HEALTH CARE NURSE Plan of Treatment Upcoming Encounters Date Type Department Care Team (Late st Contact Info) Description 09/19/2025 12:45 PM PRIMARY HEALTH CARE NURSE Office Visit [facility] EAR, NOSE AND TH[facility] [address] [facility] [address] [place] [address] Leonardo Espinal MD [address] [facility] [address] [place] [phone] Health Maintenance Due Date Last Done Comments DTAP/TDAP/TD VACCINES (1 - Tdap) 1968 COLORECTAL SCREENING 1994 Colorectal Cancer Screening 1994 FIT-DNA Q 3 years 1994 FIT/FOBT Q 1 year 1994 Flex Sig/CT Colonography Q 5 years 1994 ZOSTER VACCINE (1 of 2) 10/15/1999 OSTEOPOROSIS SCREENING 2014 INFLUENZA VACCINE (#1) 2024 Medicare Advantage (PR) Prev entative Visit/Annual Wellness Visit 08/08/2024 RSV VACCINE (60+ or ) (1 - 1-dose 75+ series) 2024 PNEUMOCOCCAL VACCINE 50+ YEARS Completed 09/21/2017 , 08/05/2016 Procedures Procedure Name Priority Date/Time Associated Diagnosis Comments THYROID ANTIBODIES Routine 10/17/2024 9: 53 AM CDT Thyroid nodule from Last 3 Months Results * (ABNORMAL) THYROID AUTOANTIBODIES PROFILE (10/17/2024 9:53 AM CDT) THYROGLOBULIN AB 1 < or = 1 IU/mL [facility] THYROID PEROXIDASE AB 21(H) <9 IU/mL [facility] Comment: FASTING:YES FASTING: YES [place] [facility] [address] [place] [address] Blood 10/17/2024 9:53 AM CDT 10/17/2024 9:53 AM CDT us Leonardo Espinal MD CHEMISTRY ORDERABLES Final Resul t Performing Organization Address City/State/[place] de Phone Number [facility] [phone] [facility] [address] [place] [address] from Last 3 Months Insurance [employer] PPO MCR Care Teams Head Waiter/Waitress Banquet Relationship Specialty Start Date End Date Leonel Brasher MD [address] [place] [address] [address] [place] [phone] PCP - General 11/08/08
--- OUTSIDE RECORDS SUMMARY | 2024-10-25 09:26 | XMS_ITS | Encounter Summary ---
Author Organization [facility] Address [facility] [place] [address] Care Team Providers Care Polisher Hand Name Role Phone Hussein Storm MD Unavailable Unavailable Moises Martinez MD Primary Care Provider [phone] Leonel Brasher MD Primary Care Provider [phone] Abram Nelson MD Unavailable [phone] Diamond Castillo Primary Care Provider [phone] Encounter Details Date Type Department Care Team (Late st Contact Info) Description 02/14/2016 Abstract [facility] AT [address] [address] Jermaine Lloyd MA Social History Tobacco Use Types Packs/Day Years Used Date Smoking Tobacco: Never Alcohol Use Standard Drinks/Week Comments [...] 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 Not on file Not on file documented as of this encounter Plan of Treatment Upcoming Encounters Date Type Department Care Team (Late st Contact Info) Description 04/05/2025 9:00 AM CDT [facility] [address] [place] [phone] Tom Sanchez, PURCHASING ASSISTANT [facility] [address] [place] [address] documented as of this encounter Visit Diagnoses Not on filedocumented in this encounter Care Teams Polisher Hand Relationship Specialty Start Date End Date Moises Martinez MD [address] [place] [address] PCP - General FAMILY PRACTICE 02/03/16 03/07/17 Leonel Brasher MD [address] [place] [address] PCP - General INTERNAL MEDICINE 03/08/17 06/10/22 Diamond Castillo PA [address] [place] [address] PCP - General PHYSICIAN WATER OPERATOR 06/11/22 Hussein Storm MD [place] [employer] [facility] CARDIOVASCULAR DISEASE 01/07/16 08/07/17 Abram Nelson MD [facility]. [facility] [address] [place] [address] [place] [employer] Maker CARDIOVASCULAR DISEASE 03/14/18 documented as of this encounter
--- OUTSIDE RECORDS SUMMARY | 2024-10-25 09:26 | XMS_ITS | Encounter Summary ---
Author Organization [facility] Address [address] [facility] [place] [address] Care Team Providers Care Interventional Neuroradiologist Name Role Phone Chanell Snell Primary Care Provider Encounter Details Date Type Department Care Team (Late st Contact Info) Description 08/28/2020 Lab Requisition [facility] [address] [place] [address] Antonio Anaya MD [address] [facility] [place] [address] Social History Tobacco Use Types Packs/Day Years Used Date Smoking Tobacco: Never Assessed Sex and Gender Information Value Date Recorded Sex Assigned at Not on file Gender Identity Not on file Sexual Orientation Not on file documented as of this encounter Plan of Treatment Not on file documented as of this encounter Procedures Procedure Name Priority Date/Time Associated Diagnosis Comments DERMATOPATHOLOGY Routine 08/27/2020 3:27 AM HAT FORMING MACHINE OPERATOR documented in this encounter Results * DERMATOPATHOLOGY (08/27/2020 3:27 AM HAT FORMING MACHINE OPERATOR) Case Report Dermatopathology Report Case: [id number] Authorizing Provider: Antonio Anaya MD Collected: 08/27/2020 03:27 AM Ordering Location: [facility] Received: 08/28/2020 06:47 AM Pathologist: July Sexton MD Specimen: Skin, ant neck 5:07 PM HAT FORMING MACHINE OPERATOR DERMATOPATHOLOGY LABORATORY Final Diagnosis Specimen A. SKIN, ant neck: ACTINIC KERATOSIS (L57.0) DERMAL FIBROSIS (L90.5) (see microscopic description) 5:07 PM HAT FORMING MACHINE OPERATOR DERMATOPATHOLOGY LABORATORY Clinical History AK vs SK vs SCC vs BCC. 1 5:07 PM [facility] DERMAT[facility]Y [facility]ORATORY Gross Description Specimen A: Received is one formalin filled container labeled with the patient's name and designated ant neck. The specimen consists of a shave biopsy measuring [id number]. Jar 0. 1 5:07 PM [facility] DERMATOPATHOLOGY LABORATORY Microscopic Description Specimen A. SKIN, ant neck: There is focal parakeratosis. The lower half of the epidermis shows disorderly maturation of keratinocytes with nuclear pleomorphism. Focal dermal fibrosis is present. Additional deeper sections were obtained and reviewed. 1 5:07 PM [facility] DERMATOPATHOLOGY LABORATORY Disclaimer An external and internal positive and negative controls are appropriate for the histochemical, immunohistochemical and immunofluorescence stain(s) in this case (if any), except where stated explicitly. The performance characteristics of the stain(s) cited in this report were developed and its performance characteristic determined by the Dermatopathology Laboratory at [facility], directed by Dr. Josemanuel Tobin. These tests need not be, and therefore are not, approved by the [place] Food and Drug Administration. The tests are used for clinical purposes. Billing Codes Specimen Charges Stain Charges 51014 1 1 5:07 PM [facility] DERMATOPATH[facility]Y [facility]ORATORY Embedded Images 1 5:07 PM [facility] DERMATOPATH[facility]Y [facility]ATORY Pathology/Cytolo gy TISSUE SPECIMEN FROM SKIN / Unknown 08/27/2020 3:27 AM HAT FORMING MACHINE OPERATOR 08/28/2020 6:47 AM HAT FORMING MACHINE OPERATOR Antonio Anaya MD LAB - PATHOLOGY/CYTO LOGY ORDERABLES DERMATOPATHOLOGY LABORATORY [facility] - Department of Dermatology [facility] Medicine [address] [place] [address], [address] [phone] documented in this encounter Visit Diagnoses Not on filedocumented in this encounter Care Teams Interventional Neuroradiologist Relationship Specialty Start Date End Date Chanell Snell PA [address] [place] [id number] PCP - General 11/30/22 documented as of this encounter
== END 2024-10-25 09:07 | disposition home or self-care (01) ==
PROVIDERS: PCP Nurse Practitioner Family; Visit Provider Nurse Practitioner Family
DX: M85.89 Other specified disorders of bone density and structure, multiple sites (principal); N95.8 Other specified menopausal and perimenopausal disorders
CPT/HCPCS: 77080